=== PATIENT | female | born 1975 | race Caucasian/White ===

== ENCOUNTER 2024-02-08 08:49 | Emergency (ER) | payer OTHER, SELFPAY ==
[2024-02-08 08:54] VITALS: BP 141/89
--- NOTE | 2024-02-08 09:18 | EDRN ---
Phani Parikh PA in room w/pt at this time.
[2024-02-08 09:30] VITALS: BP 110/89; BMI 37.8
--- NOTE | 2024-02-08 09:30 | EDRN ---
Pt states that she has mid abd pain at 5-6/10 for about a month and thinks it is her diverticulitis. Pt reports a normal BM last night and voiding w/out difficulty. Pt adds she wants a CT scan to r/o diverticulitis but no IV contrast as she is very
allergic.
[2024-02-08] MEDS: OMNIPAQUE 50 ML PO (09:43)
[2024-02-08 09:44] LABS: Urine Albumin Negative (Neg - Trace); Urine Bilirubin Negative (Negative); Urine Character Clear (Clear); Urine Color Yellow; Urine Glucose Negative (Negative); Urine Ketone 1+ (Negative); Urine Leukocyte Negative (Negative); Urine Nitrite Negative (Negative); Urine Occult Blood 1+ (Negative); Urine Specific Gravity 1.025 (<1.030); Urine Urobilinogen Negative (Neg - 1+)
[2024-02-08 09:45] LABS: % Basophils 0.5 % (0-2); % Eosinophils 1.9 % (0-6); % Immature Granulocytes 0.4 % (0-0.5); % Lymphocytes 17.5 % (20.5-51.1); % Monocytes 7.3 % (1.7-9.3); % Neutrophils 72.4 % (42.2-75.2); Absolute Eosinophils 0.2 10^3/uL (0-0.7); Absolute Lymphocytes 1.5 10^3/uL (1.2-3.4); Absolute Monocytes 0.6 10^3/uL (0.1-0.6); Absolute Neutrophils 6.2 10^3/uL (1.4-6.5); Hemoglobin 9.4 g/dL (12.0-16.0); Mean Corp Hgb Conc. 30.3 g/dL (33.0-37.0); Mean Corpuscular Hgb 21.9 pg (27.0-31.0); Mean Corpuscular Volume 72.1 fL (81.0-99.0); Mean Platelet Volume 9.3 fL (7.4-10.4); Nucleated Red Blood Cells % 0 %; Platelet Count 297 10^3/uL (130-400); White Blood Cell Count 8.6 10^3/uL (4.8-10.8)
[2024-02-08 09:54] LABS: HCG, Serum Qualitative Screen Negative
[2024-02-08 09:57] LABS: ALT (SGPT) 20 U/L (0-35); AST (SGOT) 21 U/L (14-36); Albumin 4.2 g/dl (3.5-5.0); Alkaline Phosphatase 75 U/L (38-126); Blood Urea Nitrogen 16 mg/dl (7-17); Calcium 8.8 mg/dl (8.4-10.2); Carbon Dioxide 26 mmol/L (22-30); Chloride 103 mmol/L (98-107); Glucose 85 mg/dl (70-99); Lipase 74 U/L (23-300); Potassium 3.6 mmol/L (3.5-5.1); Sodium 137 mmol/L (135-145); Total Bilirubin 0.4 mg/dl (0.2-1.3); Total Protein 7.4 g/dl (6.3-8.2); eGFR > 60.00
[2024-02-08 10:00] VITALS: BP 119/81
[2024-02-08 10:02] LABS: Urine Bacteria Many (Negative); Urine Red Blood Cell 0-2 /HPF (0-2); Urine Squamous Cell 26-30 /LPF (Few)
--- NOTE | 2024-02-08 10:31 | ED.GENMED ---
History of Present Illness
General
Chief Complaint: Abdominal Symptoms
Time Seen by Provider: 02/08/24 09:11
History of Present Illness
History of Present Illness:
48-year-old female presents to the emergency department for evaluation of left lower quadrant abdominal pain is been ongoing for the past month. She states that she does have chronic IBS however does not typically have focal pain like this.
Concern for diverticulitis. No diarrhea or vomiting. No fevers or chills. She is quite adamant that she wants to receive a CT scan as opposed to empiric treatment
Past History
Past History
ED Past Medical History: None; Negative Asthma, HTN, Hypercholesterolemia or NIDDM
ED Past Surgical History: None
Social History
Tobacco: Non-smoker
Alcohol: None
Drug: None
Personal:
Living: with family
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
Family History
Family History: Other (n/c)
Review of Systems
Review of Systems
Allergies reviewed?: Yes
All Other Systems: ROS reviewed and negative except as documented in HPI and ROS
Phy Exam
Physical Exam
Physical Exam:
GEN: Well appearing, NAD, WDWN
HEENT: Oral mucosa moist, no scleral icterus
Cardiac: Regular rate
Lung: No respiratory distress, no tachypnea
Abdomen: Soft, grossly nontender
MSK: No gross deformity or injuries
Skin: Good color, no pallor or jaundice, no rashes
Neuro: AO x3, moves all extremities freely
Psych: Calm, cooperative
Course
Orders/Labs/Results
Orders:
Orders
02/08/24 09:22
IV Insert/Care/Rem.- Treatment PRN
Test Result ONCE
02/08/24 09:33
Complete Blood Count/With Diff Urgent
Comprehensive Metabolic Panel Urgent
HCG, Serum Qualitative Screen Urgent
Lipase Urgent
02/08/24 09:34
CT Abd/pel (oral only)-DH Only Urgent
Comment:
Reason For Exam: LLQ pain
Iohexol [Omnipaque] See Protocol PO NOW STA
02/08/24 09:36
Urinalysis Reflex To Culture Urgent
Date Specimen was Collected: 02/08/24
Time Specimen was Collected: :34
Urine Microscopic Reflex Cult Urgent
Urine Culture Urgent
VINICIO Source: U
Specimen Description:
Date Specimen was Collected: 02/08/24
Time Specimen was Collected: :34
Abnormal Lab Results
02/08/24 02/08/24
09:33 09:36
Hgb 9.4 L g/dL
(12.0-16.0)
Hct 31.0 L %
(37.0-47.0)
MCV 72.1 L fL
(81.0-99.0)
MCH 21.9 L pg
(27.0-31.0)
MCHC 30.3 L g/dL
(33.0-37.0)
RDW 15.0 H %
(11.5-14.5)
Lymphocytes % 17.5 L %
(20.5-51.1)
Urine Ketones 1+ A
(Negative)
Ur Occult Blood Reflex 1+ A
(Negative)
Urine Bacteria (Reflex) Many A
(Negative)
02/08/24 09:33
02/08/24 09:33
Vital Signs
Initial and Last Documented VS:
Initial Vital Signs
Temp Pulse Resp BP Pulse Ox
97.8 F 74 18 141/89 100
02/08/24 08:54 02/08/24 08:54 02/08/24 08:54 02/08/24 08:54 02/08/24 08:54
Last Documented Vital Signs
Temp Pulse Resp BP Pulse Ox
97.8 F 82 18 125/76 100
02/08/24 08:54 02/08/24 12:25 02/08/24 12:25 02/08/24 12:25 02/08/24 12:25
MDM/Problems Addressed
MDM/Problems Addressed:
Workup is unremarkable, likely related to IBS.
*Critical Care Note
Total Time (30-74mins, 75-104mins- exclusive of procedures): Not Applicable
ED Attending Note
-
Portions of this chart may have been created with voice recognition software.� Occasional wrong word or��sound alike� substitutions may have occurred due to the inherent limitations of voice recognition software.
Discharge Plan
Departure
Patient Disposition: Home (Routine Discharge)
Date of Disposition: 02/08/24
Time of Disposition: 12:44
Patient with high blood pressure during this ER visit?: No
Discharge Problem:
Left lower quadrant abdominal pain
Instructions: Abdominal Pain
Prescriptions:
No Action
famotidine 40 MG tablet
40 mg PO HS
pantoprazole 40 MG tablet,delayed release (DR/EC)
40 mg PO DAILY
dicyclomine 10 MG capsule
10 mg PO QID PRN (Reason: abdominal pain) Qty: 20 0RF
pantoprazole 40 MG tablet,delayed release (DR/EC)
40 mg PO DAILY Qty: 10 0RF
Referrals:
James Frederick DO [Family Provider] -
Interventions
Interventions:
*Risk Screen - Suicide Last Done: 02/08/24 09:30
*General Assessment Last Done: 02/08/24 09:30
*Neglect/Abuse Screening Last Done: 02/08/24 09:30
ED- Fall Risk Assessment Last Done: 02/08/24 09:30
*ED COVID-19 Vaccine History Last Done: 02/08/24 09:30
*Nursing Disposition Last Done: 02/08/24 13:02
GR-Qbtysx-Ciuyitttfe Assessment Last Done: 02/08/24 09:30
Discharge Date and Time
Discharge Date/Time: 02/08/24 13:02
Print Language: YAKUT
[2024-02-08 11:06] VITALS: BP 118/74
[2024-02-08 12:25] VITALS: BP 125/76
== END 2024-02-08 13:02 | disposition home or self-care (01) ==
LOC: EMR 08:49
PROVIDERS: Physician Assistant; EMERGENCY PHYSICIAN Emergency Medicine; FAMILY PHYSICIAN Family Medicine
DX: R10.32 Left lower quadrant pain (principal); K58.9 Irritable bowel syndrome, unspecified
CPT/HCPCS: 99284; 74176; 80053; 81003; 81015; 83690; 84703; 85025; 87086